=== PATIENT | female | born 1945 | race Two or more races ===

== ENCOUNTER 2024-07-15 08:05 | Day surgery (SDC) | payer OTHER ==
[2024-07-15] MEDS ORDERED: VANCOMYCIN HCL 1000 MG VL ONE (08:34)
[2024-07-15] MEDS ORDERED: ROPIVACAINE 0.5% (5MG/ML) 20ML AMPULE IJ ONE (09:26)
[2024-07-15] MEDS ORDERED: fentaNYL CITRATE 100 MCG/2 ML VL ONE (09:30)
[2024-07-15] MEDS ORDERED: SODIUM CHLORIDE LOCK 10 ML ONE (09:32)
[2024-07-15] MEDS ORDERED: PROPOFOL 10 MG/ML 20 ML IV ONE (09:32)
[2024-07-15] MEDS: ceFAZolin 2 GM/D5W100ml 100 ML IV ONE (09:38)
[2024-07-15] MEDS ORDERED: DexAMETHasone SOD PHOS 10MG/1ML VIAL INJ ONE (09:56)
[2024-07-15] MEDS ORDERED: ONDANSETRON HCL 4 MG/2 ML VIAL ONE (09:56)
[2024-07-15] MEDS: BUPIVACAINE 0.25% INJ 50ML VIAL ONE (10:28)
[2024-07-15] MEDS: LIDOCAINE 1% HCL (LOCAL ANESTH.) INJ 20ML MDV ONE (10:28)
[2024-07-15 10:38] VITALS: TEMP 97.5
[2024-07-15] MEDS ORDERED: MEPERIDINE HCL (25 MG/ML) 1ML VIAL IV PRN (11:00)
[2024-07-15] MEDS ORDERED: ONDANSETRON HCL 4 MG/2 ML VIAL IV ONE (11:00)
[2024-07-15] MEDS ORDERED: HYDROmorphone HCL 2 MG/ML VL/or syr IV PRN (11:00)
--- NOTE | 2024-07-15 11:13 | DVH ---
C-ARM FLUOROSCOPY: PROCEDURE: ORIF of the wrist FLUOROSCOPY TIME: refer to op report
--- NOTE | 2024-07-15 11:13 | DVH ---
C-ARM FLUOROSCOPY: PROCEDURE: ORIF of the wrist FLUOROSCOPY TIME: refer to op report
[2024-07-15] MEDS: ACETAMINOPHEN IV 1000 MG/100ML (10MG/ML) IV PRN (11:36)
[2024-07-15] MEDS ORDERED: ACETAMINOPHEN IV 100 ML IV ONE (11:36)
[2024-07-15 12:23] VITALS: BP 166/81; PULSE 69; RESP 18; O2SAT 94
--- NOTE | 2024-07-15 12:45 | DVHOP2 ---
Operative Report - 2 Report Details Date: 07/15/24 Preop Diagnosis: Displaced Left distal radius fracture Postop Diagnosis: as above Surgeon: Mau Fernandez MD Anesthesiologist: Yolande BROWN Anesthesia: General Implant: Arthrex Distal radius plate with locking/nonlocking screws/pegs Consent: The patient was informed of the risks and benefits of the procedure. These include but are not limited to complications of anesthesia, postoperative infection, incomplete relief of symptoms, recurrence of symptoms, damage to blood vessels, nerves and tendons, deep venous thrombosis, pulmonary embolism and possible need for repeat surgery in the future. Estimated Blood Loss: 5 cc Name of Procedure Performed 1. Open reduction and internal fixation of left distal radius fracture - intraarticulare more than 3 parts 2. Intraoperative Fluoroscopy Procedure Details Procedure Details: Risks/benefits/options/alternatives were discussed at length with patient and his family. Nonoperative versus operative management was presented to her. Risks include but not exclusive to bleeding, infection, nerve injury, tendon or ligament damage, hardware failure, nonunion, malunion, need for further surgery, amputation, DVT, and . She understood these risks and wished to proceed with surgery. OPERATION: The patient was brought from the home health care case manager unit and placed on the operating table in a supine position and administered general anesthetic. Tourniquet was placed around the left upper extremity. Once adequate anesthesia had been obtained, the left upper extremity was prepped and draped in the usual sterile manner. A time out was performed. The upper extremity was then elevated and exsanguinated using an Esmarch dressing. The tourniquet was elevated to 250 mmHg. At this time an approximately 8 cm longitudinal incision was then made overlying the right flexor carpi radialis tendon from the flexion crease to the wrist proximally. This was carried down to the flexor carpi radialis, which was then retracted ulnarly. The floor of the flexor carpi radialis was then incised exposing the flexor pronator muscles. The flexor pollicis longus was retracted ulnarly and the pronator quadratus was longitudinally incised 1 cm from its origin. It was then elevated off of the fracture site exposing the fracture site, which was dorsally displaced. This was an intraarticular three-part fracture. Under image control, the volar pieces and dorsal pieces were then carefully manipulated and reduced. Then, 2.06 two-inch K-wires were drilled radial into the volar ulnar fragment and then a second K-wire was then drilled from the dorsal radial to the dorsal ulnar piece. The fracture was then manipulated. The fracture ends were copiously irrigated with normal saline and curetted and then the fracture was reduced in the usual fashion by recreating the defect and distracting it. Further K-wires were then placed through the radial styloid into the proximal fragment. Patient had significant comminution. A volar distal radius plate was then picked and using two K-wires it was well seated. We checked with fluoro. We then used a combination of locking/nonlocking screws and pegs. There was excellent reduction of the fragments and the fracture; excellent reduction of the intraarticular component and the fracture. Incision was then copiously irrigated with normal saline. Homeostasis was maintained with electrocautery. The pronator quadratus was closed with 3-0 Vicryl and the above skin incisions were closed proximally with 3-0 nylon. A large bulky dressing was then applied with a volar short-arm splint maintaining the wrist in neutral position. The tourniquet was let down. The fingers were immediately pink. The patient was awakened and taken to the recovery room in good condition. There were no operative complications. The patient tolerated the procedure well. Disposition Home MAU FERNANDEZ MD Jul 15, 2024 12:45
== END 2024-07-15 12:50 | disposition home or self-care (01) ==
LOC: SUR 08:05 → EDBD 11:30 → SUR 12:50
PROVIDERS: ATTEND Orthopaedic Surgery Adult Reconstructive Orthopaedic Surgery
DX: S52.572A Other intraarticular fracture of lower end of left radius, initial encounter for closed fracture (principal); M17.0 Bilateral primary osteoarthritis of knee; E11.9 Type 2 diabetes mellitus without complications; E66.01 Morbid (severe) obesity due to excess calories; G89.18 Other acute postprocedural pain; Z88.0 Allergy status to penicillin; Z68.41 Body mass index [BMI] 40.0-44.9, adult; Z90.89 Acquired absence of other organs; Z86.19 Personal history of other infectious and parasitic diseases; X58.XXXA Exposure to other specified factors, initial encounter; Y93.89 Activity, other specified; Y92.89 Other specified places as the place of occurrence of the external cause; Y99.8 Other external cause status
CPT/HCPCS: 25609; 64415; 73100; C1713; J1100; J2003; J2405; J2704; J2795; J3010; 76000; J0131; J3490